=== PATIENT | male | born 1975 | race Caucasian/White ===

== ENCOUNTER 2018-08-07 13:16 | Emergency (ER) | payer OTHER ==
[2018-08-07 13:42] VITALS: BP 117/79; PULSE 53; RESP 16; TEMP 98.3; O2SAT 97
--- NOTE | 2018-08-07 15:09 | ED PDOC ---
HPI: CCC, URI, Sore Throat Time Seen by Provider: 08/07/18 14:36 Chief Complaint (Nursing): ENT Problem Chief Complaint (Provider): ENT Problem History Per: Patient History/Exam Limitations: no limitations Onset/Duration Of Symptoms: Days (x3) Current Symptoms Are (Timing): Still Present Location Of Pain: Ear(s) Associated Symptoms: denies: Fever Ear Symptoms: Right: Ear Pain Additional Complaint(s): 42 y/o male with no significant PMHx presents to the ED complaining of right ear pain, onset 3 days. Patient reports pain has been worsening since onset and is associated with a mild decreased in hearing. Patient states pain worsens with opening his mouth and touching his ear. Patient additionally complains of right elbow pain, onset 3 days ago. Denies fever, trauma and URI symptoms. PMD: No Provider Past Medical History Reviewed: Historical Data, Nursing Documentation, Vital Signs Vital Signs: Last Vital Signs Temp 98.3 F 08/07/18 13:39 Pulse 53 L 08/07/18 13:39 Resp 16 08/07/18 13:39 BP 117/79 08/07/18 13:39 Pulse Ox 97 08/07/18 15:20 - Medical History PMH: No Chronic Diseases Denies: Chronic Kidney Disease - Surgical History Surgical History: No Surg Hx - Family History Family History: States: Unknown Family Hx - Social History Current smoker - smoking cessation education provided: No - Home Medications Home Medications: Ambulatory Orders Medication Instructions Recorded Cyclobenzaprine [Flexeril] 5 mg PO QID PRN #15 tab 05/04/15 Naproxen 500 mg PO BID PRN #30 tab 05/04/15 Ciprofloxacin/Dexamethasone 4 drop AD QID #1 bottle 08/07/18 [Ciprodex 0.3%-0.1% 7.5 Ml] Ibuprofen [Motrin Tab] 600 mg PO Q8 PRN #60 tab 08/07/18 - Allergies Allergies/Adverse Reactions: Allergies Allergy/AdvReac Type Severity Reaction Status Date / Time No Known Allergies Allergy Verified 05/04/15 08:32 Review of Systems ROS Statement: Except As Marked, All Systems Reviewed And Found Negative Constitutional: Negative for: Fever ENT: Positive for: Ear Pain (right), Other (Decrease in hearing ) Respiratory: Negative for: Other (URI symptoms) Physical Exam - Reviewed Nursing Documentation Reviewed: Yes Vital Signs Reviewed: Yes - Physical Exam Appears: Positive for: No Acute Distress Head Exam: Positive for: ATRAUMATIC, NORMAL INSPECTION (Tenderness to palpation of both periocular areas and on pulling of the right ear), NORMOCEPHALIC ENT: Positive for: Other (Righ Ear Canal is edematous and erythematous with whitish exudates. Mouth: No tenderness to palpation on on teeth. No Trisumus. ) Extremity: Positive for: Normal ROM (Full ROM at the right elbow. ), Tenderness (to palpation at the lateral proximal radius. No bony tenderness to palpation. ) , Other (5/5 strength in the right hand. ). Negative for: Deformity, Swelling - ECG O2 Sat by Pulse Oximetry: 97 (RA) Pulse Ox Interpretation: Normal Medical Decision Making Medical Decision Making: Time: 8 Impression: Otitis externa and lateral epicondylitis Plan: -- Glucose, POC Route -- Glucose, Blood, POC Scribe Attestation: Documented by Rachel Pak, acting as a scribe for Yadira Moody MD. Provider Scribe Attestation: All medical record entries made by the Scribe were at my direction and personally dictated by me. I have reviewed the chart and agree that the record accurately reflects my personal performance of the history, physical exam, medical decision making, and the department course for this patient. I have also personally directed, reviewed, and agree with the discharge instructions and disposition. Disposition - Clinical Impression Clinical Impression: Otitis externa, Lateral epicondylitis - Disposition Referrals: [facility] [Outside] - 08/09/18 ([facility]) Disposition: Routine/Home Disposition Time: 15:00 Condition: STABLE Prescriptions: Ciprofloxacin/Dexamethasone [Ciprodex 0.3%-0.1% 7.5 Ml] 4 drop AD QID #1 bottle Ibuprofen [Motrin Tab] 600 mg PO Q8 PRN #60 tab PRN Reason: Pain, Moderate (4-7) Instructions: Outer Ear Infection (DC), Lateral Epicondylitis (DC) Forms: [facility] (Malawian) Print Language: [id number]
== END 2018-08-07 15:07 | disposition home or self-care (01) ==
LOC: H.ER 13:16
DX: H60.91 Unspecified otitis externa, right ear (principal); M77.11 Lateral epicondylitis, right elbow